=== PATIENT | female | born 1995 | race Hispanic/Latino ===

== ENCOUNTER 2018-03-22 17:44 | Inpatient (IN) | payer OTHER ==
[2018-03-22] MEDS ORDERED: Ringers Lactate 1,000 ML IV PRN ×2 (18:14→18:58)
[2018-03-22] MEDS ORDERED: PROMETHAZINE 25 MG/ML VIAL IM PRN (18:14)
[2018-03-22] MEDS ORDERED: MEPERIDINE HCL 25 MG/0.5 ML IV PRN (18:14)
[2018-03-22] MEDS ORDERED: CARBOPROST TROME 250 MCG/ML IM PRN ×2 (18:14→18:58)
[2018-03-22] MEDS ORDERED: METHYLERGONOVINE 0.2MG/ML AMP IM PRN ×2 (18:14→18:58)
[2018-03-22] MEDS ORDERED: BUTORPHANOL 1 MG/ML INJ IV PRN ×2 (18:14→18:58)
[2018-03-22 18:36] LABS: RPR Titer ND
[2018-03-22] MEDS ORDERED: PROMETHAZINE 25 MG/ML VIAL IV PRN ×2 (18:48→18:58)
[2018-03-22 18:50] VITALS: BMI 23.9
[2018-03-22 18:53] LABS: Absolute Lymphocytes (CBC) 1.5 K/uL (0.7-4.9); Absolute Monocytes 0.3 K/uL (0.1-1.3); Absolute Neutrophil 6.6 K/uL (1.8-8.0); Basophils % 0.1 % (0-1.3); Eosinophils % 0.4 % (0-4.4); Hematocrit 33.6 % (36.0-45.0); Lymphocytes % 17.3 % (15.3-44.8); MCH 29.1 pg (27.0-35.0); MCV 83.4 fL (80-100); MPV 9.7 fL (7.6-11.3); Monocytes % 3.9 % (3.3-12.3); RBC Red Blood Cell Count 4.03 M/uL (3.86-4.86)
[2018-03-22] MEDS ORDERED: Ringers Lactate 1,000 ML IV SCH ×2 (19:00)
[2018-03-22] MEDS ORDERED: OXYTOCIN/LR 20 UNIT/1,000 ML BAG IV SCH ×2 (19:00)
[2018-03-23] MEDS ORDERED: LIDOCAINE 2% INJ, 20 mL 0 ML ONE (00:12)
--- NOTE | 2018-03-23 00:43 | PREOPHP ---
Date of Admission: 03/22/2018 History Of Present Illness: Ms. Zavala is a 22-year-old female, 2, para 1-0- 0-1, at 38+ weeks gestation. She is followed by Dr. Richards during this without significant complications. She presents with spontaneous rupture of membranes and with irregular contractions. Past Medical History: Please see record. Family History: Please see record. Review of Systems: She reports no recent cough, cold, fever, or chills. No recent nausea or vomiting. She denies any b reast knots or lumps. She denies any bowel or bladder issues. has been active. She denies a ny significant vaginal bleeding. Physical Examination: General: Reveals a pleasant female, in no apparent distress. Neck: Supple without adenopathy or thyromegaly. Lungs: Clear. Cardiac: Regular rate and rhythm without murmurs. Breasts: Not examined. Abdomen: Estimated weight of 6-plus to 7-plus pounds. PELVIC: Now cervix noted to be approximately 4+ cm dilated, vertex between -1 and -2 station. Extremities: No cyanosis, clubbing, or edema. Impression: A [id number] , spontaneous rupture of membranes. Plan: The patient is currently being augmented with Pitocin. She is beta strep negative. Prefers o nly IV analgesia during her labor course. DARIN/JAMES Voice ID: [id number]
[2018-03-23] MEDS ORDERED: ONDANSETRON 4 MG (ODT) TAB PO PRN (01:26)
[2018-03-23] MEDS ORDERED: IBUPROFEN 200 MG TAB PO PRN (01:26)
[2018-03-23] MEDS ORDERED: CARBOPROST TROME 250 MCG/ML IM PRN (01:26)
[2018-03-23] MEDS ORDERED: METHYLERGONOVINE 0.2 MG TAB PO PRN (01:26)
[2018-03-23] MEDS ORDERED: METHYLERGONOVINE 0.2MG/ML AMP IM PRN (01:26)
[2018-03-23] MEDS ORDERED: ACETAMINOPHEN 500 MG TAB PO PRN (01:26)
--- NOTE | 2018-03-23 01:29 | P.BOP ---
Preoperative diagnosis: Term IUP Postoperative diagnosis: SCVD viable male Estimated blood loss: <300ml Complications: None Transferred to: Other ([id number])
[2018-03-23] MEDS ORDERED: MEASLES,MUMPS,RUBELLA VAC 0.5ML SQVAC ONE (01:33)
[2018-03-23 01:42] LABS: RPR (Rapid Plasma Reagin) NON-REACT (NON-REACT)
[2018-03-23] MEDS ORDERED: OXYTOCIN/LR 20 UNITS/1,000 ML BAG IV SCH (02:00)
--- NOTE | 2018-03-23 16:55 | OP ---
Surgeon: Palomo Aviles MD DELIVERY NOTE Ms Zavala is a 22-year-old female, 2, para 1-0-0-1, followed by Dr. Richards. S he presents with ruptured membranes in prodromal labor. After Pitocin augmentation of labor, she had a first stage of labor of 8 hours and second stage of labor 7 minutes. She delivered by spontaneous controlled vaginal delivery, a 7 pounds 6 ounce male infant, 9 and 9. After short delay, the c ord was clamped, cut, and the placed on mother's upper abdomen. Cord blood was obtained. Plac enta was spontaneously expelled and appeared to be intact. Intrauterine examination revealed no alicia ined placental fragments. She suffered no lacerations. Estimated total blood loss was less than 300 cc. She received 1 dose of Stadol 1 mg and Phenergan 12.5 mg IV x1 for analgesia during her labor c ourse. DARIN/JAMES Voice ID: [id number] Report ID: [id number]
[2018-03-24 09:04] VITALS: BP 108/59; TEMP 98.1
--- NOTE | 2018-03-25 06:39 | DS ---
Date of Discharge: 03/24/2018 Final Hospital Discharge Diagnosis: 38 plus week , delivered. Complications: None. Procedures: Pitocin augmentation of labor, spontaneous controlled vaginal delivery of viable male in shannan. Hospital Course: The patient is a 22-year-old, , female, 2, para 1-0-0-1, at 38+ weeks gestation, followed by Dr. Richards during this without complication. She was admi tted with spontaneous rupture of membranes in prodromal labor. She had an uneventful labor and deliv tati of a 7-pound 6-ounce male utilizing IV analgesia. She was dismissed on the first postpart um day, ambulatory, on a select diet with routine postvaginal delivery activity restrictions. To be seen back by Dr. Richards for a followup. She had admission hemoglobin and hematocrit of 11.7 and 33.6, dismissal 31.7. She was rubella nonimmune, was immunized prior to dismissal. She is Rh positive bl ood type. DARIN/JAMES Voice ID: [id number] Report ID: [id number]
[2018-03-26 03:34] LABS: HBsAG Nonreactive (Nonreactive)
== END 2018-03-24 12:45 | disposition home or self-care (01) | DRG 807 ==
LOC: L&D 17:44 → 2ND-WC 17:51
PROVIDERS: ADMIT Specialist; ATTEND Specialist
PROC: 10E0XZZ Delivery of Products of Conception, External Approach (ICD-10-PCS; principal; 2018-03-23)
DX: O80 Encounter for full-term uncomplicated delivery (principal); Z37.0 Single live birth; Z3A.38 38 weeks gestation of pregnancy; Z23 Encounter for immunization
CPT/HCPCS: 36415; 83986; 85014; 85025; 86592; 86901; 87340; 90707; J0595; J2210; J2550; J2590

== ENCOUNTER 2019-09-21 18:10 | Emergency (ER) | payer BC, OTHER ==
--- OUTSIDE RECORDS SUMMARY | 2019-09-21 18:11 | XMS REPORT ---
:1995 Author Organization [facility] t Address [address] [place] [address] Dr. Fitz[address] [place] [address] Care Team Providers Name Role Phone Unavailable Unavailable Unavailable Problems Condition Condition Condition Status Onset Resolution Last Treating Co mments Source Name Details Category Date Date Treatment Clinician Date Surveillan Surveillan Diagnosis Active [facility] for [facility] control, control, l intrauteri intrauteri Ou tpati ne device ne device ent Clinics Need for Need for Problem Active [facility] Tdap Tdap [facility] - vaccinatio vaccinatio Me moria n n l Outpati ent Clinics Encounter Encounter Problem Active [facility] for for [facility] - supervisio supervisio Me moria n of other n of other l normal normal Outpati ent in third in third Clinic s trimester trimester Other Other Problem Active [facility] specified specified Luke s - diseases diseases Memori a and and l conditions conditions Ou tpati complicati complicati en t [facility] Clinics , , childbirth childbirth and the and the puerperium puerperium Underimmun Underimmun Problem Active [facility] ization ization [facility] - status status [facility]oria l [facility] Encounter Encounter Problem Active [facility] for for [facility] - supervisio supervisio Me moria n of other n of other l normal normal Outpati ent in second in second Clin ics trimester trimester Encounter Encounter Problem Active [facility] for for [facility] - supervisio supervisio Me moria n of other n of other l normal normal Outpati ent in first in first Clinic s trimester trimester Allergies, Adverse Reactions, Alerts Allergy Allergy Status Severity Reaction(s) Onset Inactive Treating Comm ents Source Name Type Date Date Clinician seasonal Adverse Active Info Not [facility] Reaction Available [facility] Medications Ordered Filled Start Stop Current Ordering Indication Dosage Frequency Signature Comments Components Source Medication Medication Date Date Medication? Clinician (SIG) Name Name Denise Walker 2017- Yes Bill [address] [facility] 5-07 R[facility]hi at bedtime [facility] Clin[facility] Yes Bill [address] [facility] R[facility]hi [facility] Clinics Procedures This patient has no known procedures. Encounters Start End Encounter Admission Attending Care Care Encounter Source Date/Time Date/Time Type Type Clinicians Facility Department ID 2019-01-26 2019-01-26 Outpatient [facility] [id number] [facility] [address] 15[facility]00 15[facility]00:00 t [facility] 2018-10-06 2018-10-06 Outpatient [facility] [id number] [address] 15:[facility] 15[facility] Results This patient has no known results.
[2019-09-21] MEDS ORDERED: ONDANSETRON 4 MG/2 ML VIAL ONE (18:47)
[2019-09-21] MEDS ORDERED: NA CHLORIDE 0.9% 2,000 ML ONE (18:48)
[2019-09-21 19:17] LABS: Absolute Lymphocytes (CBC) 2.3 K/uL (0.7-4.9); Basophils % 0.8 % (0-1.3); Hematocrit 39.1 % (36.0-45.0); Lymphocytes % 32.3 % (15.3-44.8); RBC Red Blood Cell Count 4.79 M/uL (3.86-4.86)
[2019-09-21 19:22] LABS: BUN Blood Urea Nitrogen 13 mg/dL (7-18); Bicarbonate 25 mmol/L (21-32); Glucose Level 91 mg/dL (74-106); Potassium 3.5 mmol/L (3.5-5.1); Sodium Level 138 mmol/L (136-145)
[2019-09-21 21:12] LABS: Urine Blood TRACE (NEG); Urine Glucose NEGATIVE (NEG); Urine Protein NEGATIVE (NEG)
[2019-09-21 22:07] VITALS: O2SAT 100
[2019-09-21 22:12] VITALS: BP 121/83; TEMP 98.7
--- NOTE | 2019-09-22 07:08 | EKG ---
Test Date: 2019-09-21 Test Time: 18:48:54 Kaitara Taraka: KRISTY MEASUREMENT RESULTS: Intervals: Rate: 76 SD: 188 QRSD: 74 QT: 372 QTc: 418 [place]: P: 55 SD: 188 QRS: 76 T: 59 INTERPRETIVE STATEMENTS: Normal sinus rhythm with sinus arrhythmia Normal ECG No previous ECG available for comparison Electronically Signed On 09-22-19 07:07:57 CDT by Sin Stark
--- NOTE | 2019-09-28 12:41 | EDPHYS ---
Physician Documentation [facility] Name: Maya Zavala Age: 24 yrs Sex: Female : 1995 Arrival Date: 09/21/2019 Time: 18:12 Bed 6 Private MD: ED Physician Riki Shields HPI: 09/20 18:32 This 24 yrs old Female presents to ER via Ambulatory with complaints of rn accidental ingestion of Cutter backyard spray. 18:32 The patient presents to the emergency department with a known poisoning. Severity of rn symptoms: At their worst the symptoms were mild in the emergency department the symptoms have improved. The patient has not experienced similar symptoms in the past. Reports accidentally drank about 8 oz of Cutter backyard bug spray concentrate. Reports sore throat and tingling to throat, threw up once, and now feels ok. No trouble swallowing. Has been drinking water. No medical problems. No seizures. no chest pain/sob. Solution is 0.16% Lamda-Cyhalothrin. . Historical: - Allergies: 18:14 No Known Allergies; aa5 - Home Meds: 18:14 None [Active]; aa5 - PMHx: 18:14 None; aa5 - PSHx: 18:14 None; aa5 - Immunization history:: Adult Immunizations up to date. - Social history:: Smoking status: Patient denies any tobacco usage or history of. - Family history:: not pertinent. - Hospitalizations: : No recent hospitalization is reported. ROS: 18:32 Constitutional: Negative for fever, chills, and weight loss, Eyes: Negative for injury, rn pain, redness, and discharge, ENT: Tingling in throat but no pain Neck: Negative for injury, pain, and swelling, Cardiovascular: Negative for chest pain, palpitations, and edema, Respiratory: Negative for shortness of breath, cough, wheezing, and pleuritic chest pain, Abdomen/GI: Negative for abdominal pain, diarrhea, and constipation, MS/Extremity: Negative for injury and deformity, Skin: Negative for injury, rash, and discoloration, Neuro: Negative for headache, weakness, and seizure. Exam: 18:32 Constitutional: This is a well developed, well nourished patient who is awake, alert, rn and in no acute distress. Ambulatory to room without difficulty or assistance. Head/Face: Normocephalic, atraumatic. Eyes: Pupils equal round and reactive to light, extra-ocular motions intact. Lids and lashes normal. Conjunctiva and sclera are non-icteric and not injected. Cornea within normal limits. Periorbital areas with no swelling, redness, or edema. ENT: Mild pharyngeal erythema, no exudate/stridor/swelling Neck: Trachea midline, no thyromegaly or masses palpated, and no cervical lymphadenopathy. Supple, full range of motion without nuchal rigidity, or vertebral point tenderness. No Meningismus. Cardiovascular: Regular rate and rhythm. No pulse deficits. Respiratory: No increased work of breathing, no retractions or nasal flaring. Abdomen/GI: Soft, non-tender Skin: Warm, dry MS/ Extremity: Pulses equal, no cyanosis. Neurovascular intact. Full, normal range of motion. Equal circumference. Neuro: Awake and alert, GCS 15, oriented to person, place, time, and situation. Cranial nerves II-XII grossly intact. Motor strength 5/5 in all extremities. Sensory grossly intact. Cerebellar exam normal. Normal gait. Vital Signs: 18:13 BP 139 / 102; Pulse 90; Resp 18 S; Temp 99.0(TE); Pulse Ox 100% on R/A; aa5 19:07 BP 110 / 76; Pulse 72; Resp 18; Pulse Ox 100% on R/A; ea 20:34 BP 122 / 82; Pulse 81; Resp 18; Pulse Ox 100% on R/A; ea 22:00 BP 121 / 83; Pulse 77; Resp 17; Temp 98.7; Pulse Ox 100% ; rv MDM: 18:14 Patient medically screened. rn 19:14 Data reviewed: vital signs, nurses notes. Data interpreted: Pulse oximetry: on room air kb is 100 %. Interpretation: normal. ED course: Will monitor pt for 4 hours based on Poison Control's recommendation. No distress noted. Pt drinking water without difficulty. 20:53 Counseling: I had a detailed discussion with the patient and/or guardian regarding: the kb historical points, exam findings, and any diagnostic results supporting the discharge/admit diagnosis, lab results, the need for outpatient follow up, a family practitioner, to return to the emergency department if symptoms worsen or persist or if there are any questions or concerns that arise at home. 05/25 18:31 Order name: CBC with Diff; Complete Time: 19:20 rn 09/20 18:31 Order name: Basic Metabolic Panel; Complete Time: 19:24 rn 09/20 20:34 Order name: Urine Dipstick--Ancillary (enter results); Complete Time: 21:18 banner 09/20 20:34 Order name: Urine --Ancillary (enter results); Complete Time: 21:18 banner 09/20 18:31 Order name: IV Start; Complete Time: 18:49 rn 09/20 18:31 Order name: Urine Test (obtain specimen); Complete Time: 20:33 rn 09/20 18:31 Order name: Urine Dipstick-Ancillary (obtain specimen); Complete Time: 20:33 rn 09/20 18:31 Order name: EKG - Nurse/Tech; Complete Time: 18:49 rn 09/20 18:31 Order name: EKG; Complete Time: 18:32 rn Administered Medications: 18:58 Drug: Zofran (Ondansetron) 4 mg Route: IVP; Site: right antecubital; ls4 19:19 Follow up: Response: No adverse reaction ea 18:58 Drug: NS 0.9% 1000 ml Route: IV; Rate: 1000 ml; Site: right antecubital; ls4 22:00 Follow up: IV Status: Completed infusion; IV Intake: 1000ml rv 18:59 Drug: NS 0.9% 1000 ml Route: IV; Rate: 1000 ml; Site: right antecubital; ls4 22:00 Follow up: IV Status: Completed infusion; IV Intake: 1000ml rv Disposition: 09/21 07:10 Co-signature as Attending Physician, Riki Shields MD. rn Disposition: 09/21/19 21:34 Discharged to Home. Impression: Accidental ingestion of cutter insect spray. - Condition is Stable. - Discharge Instructions: Nontoxic Ingestion, What You Need to Know About Poisoning, Adult. - Medication Reconciliation Form, Thank You Letter, Antibiotic Education, Prescription Opioid Use form. - Follow up: Private Physician; When: 2 - 3 days; Reason: Recheck today's complaints, Continuance of care, Re-evaluation by your physician. Follow up: Emergency Department; When: As needed; Reason: Worsening of condition. Signatures: Dispatcher [employer] Jose Alberto Norwoodistin, BROADCAST PRODUCER-C BROADCAST PRODUCER-Ckb Riki Shields MD MD rn Calderon, Mariah, RN RN aa5 Saeid Huynh, RN RN Marlen Phillips, RN RN ls4 Jocelin Diaz RN ea Corrections: (The following items were deleted from the chart) 09/20 18:34 18:32 Constitutional: Negative for fever, chills, and weight loss, Eyes: Negative for rn injury, pain, redness, and discharge, Neck: Negative for injury, pain, and swelling, Cardiovascular: Negative for chest pain, palpitations, and edema, Respiratory: Negative for shortness of breath, cough, wheezing, and pleuritic chest pain, Abdomen/GI: Negative for abdominal pain, diarrhea, and constipation, MS/Extremity: Negative for injury and deformity, Skin: Negative for injury, rash, and discoloration, Neuro: Negative for headache, weakness, and seizure, rn 22:01 21:34 09/21/2019 21:34 Discharged to Home. Impression: Accidental ingestion of cutter rv insect spray. Condition is Stable. Forms are Medication Reconciliation Form, Thank You Letter, Antibiotic Education, Prescription Opioid Use. Follow up: Private Physician; When: 2 - 3 days; Reason: Recheck today's complaints, Continuance of care, Re-evaluation by your physician. Follow up: Emergency Department; When: As needed; Reason: Worsening of condition. kb
--- NOTE | 2019-09-28 12:41 | ER ---
Nurse's Notes [facility] Name: Maya Zavala Age: 24 yrs Sex: Female : 1995 Arrival Date: 09/21/2019 Time: 18:12 Bed 6 Private MD: Diagnosis: Accidental ingestion of cutter insect spray Presentation: 09/20 18:13 Chief complaint: Patient states: Drank 8 oz of cutter backyard bug control spray aa5 concentrate (jamar-cyhalothrin 0.16%) approximately at 1730. Pt states "I went to my cousin's house to eat crawfish and he disposed of the cutter insect repellant in a water bottle so I didn't know and I drank it right after eating dinner". Pt states "I vomited right away and my called poison control". Pt c/o sore throat and burning sensation to esophagus. 18:13 Coronavirus screen: Proceed with normal triage. Patient denies a cough. Patient denies aa5 shortness of breath or difficulty breathing. Patient denies measured and/or subjective temperature greater than 100.4F prior to today's visit. Patient denies travel on a cruise ship or to a country the [facility] currently lists as an affected area. Patient denies contact with known and/or suspected case of COVID-19. Ebola Screen: Patient negative for fever greater than or equal to 101.5 degrees Fahrenheit, and additional compatible Ebola Virus Disease symptoms. Initial Sepsis Screen: Does the patient meet any 2 criteria? No. Patient's initial sepsis screen is negative. Does the patient have a suspected source of infection? No. Patient's initial sepsis screen is negative. Risk Assessment: Do you want to hurt yourself or someone else? Patient reports no desire to harm self or others. Onset of symptoms was August 2019. 18:13 Acuity: SEBASTIEN 3 aa5 18:13 Method Of Arrival: Ambulatory aa5 Triage Assessment: 18:29 General: Appears in no apparent distress. comfortable, Behavior is calm, cooperative. ls4 Neuro: No deficits noted. Cardiovascular: No deficits noted. Respiratory: Airway is patent Respiratory effort is even, unlabored, Respiratory pattern is regular. GI: No deficits noted. No signs and/or symptoms were reported involving the gastrointestinal system. : No deficits noted. No signs and/or symptoms were reported regarding the genitourinary system. Derm: No deficits noted. No signs and/or symptoms reported regarding the dermatologic system. Musculoskeletal: No deficits noted. No signs and/or symptoms reported regarding the musculoskeletal system. Historical: - Allergies: 18:14 No Known Allergies; aa5 - Home Meds: 18:14 None [Active]; aa5 - PMHx: 18:14 None; aa5 - PSHx: 18:14 None; aa5 - Immunization history:: Adult Immunizations up to date. - Social history:: Smoking status: Patient denies any tobacco usage or history of. - Family history:: not pertinent. - Hospitalizations: : No recent hospitalization is reported. Screenin:28 Abuse screen: Denies threats or abuse. Denies injuries from another. Nutritional ls4 screening: No deficits noted. Tuberculosis screening: No symptoms or risk factors identified. Fall Risk None identified. Assessment: 18:32 Reassessment: Spoke to poison control ([facility] at [facility]) and states aa5 seizures, coma, decreased mental status, abdominal cramping, paresthesias to throat, dizziness, and hyperexcitability may occur and most likely within the first 20 to 60 minutes of ingestion. Bowel irrigation is not indicated due to being rapidly absorbed by the body. Treatment is supportive care and observation time is recommended for 4-6 hours. Case # [id number]. 19:22 General: Appears in no apparent distress. Behavior is calm, cooperative, appropriate ea for age. Pain: Denies pain. Neuro: Level of Consciousness is awake, alert, obeys commands, Oriented to person, place, time, situation. Respiratory: Airway is patent Respiratory effort is even, unlabored, Respiratory pattern is regular, symmetrical. Derm: Skin is pink, warm \\T\\ dry. 20:33 Reassessment: Patient and/or family updated on plan of care and expected duration. Pain ea level reassessed. Patient is alert, oriented x 3, equal unlabored respirations, skin warm/dry/pink. 22:01 Reassessment: Patient and/or family updated on plan of care and expected duration. Pain rv level reassessed. Patient is alert, oriented x 3, equal unlabored respirations, skin warm/dry/pink. Patient states feeling better. Vital Signs: 18:13 BP 139 / 102; Pulse 90; Resp 18 S; Temp 99.0(TE); Pulse Ox 100% on R/A; aa5 19:07 BP 110 / 76; Pulse 72; Resp 18; Pulse Ox 100% on R/A; ea 20:34 BP 122 / 82; Pulse 81; Resp 18; Pulse Ox 100% on R/A; ea 22:00 BP 121 / 83; Pulse 77; Resp 17; Temp 98.7; Pulse Ox 100% ; rv ED Course: 18:12 Patient arrived in ED. ag5 18:12 Arm band placed on. aa5 18:14 Riki Shields MD is Attending Physician. rn 18:26 Triage completed. aa5 18:27 Marlen Buck, RN is Primary Nurse. ls4 18:28 No apparent distress. ls4 18:28 Patient has correct armband on for positive identification. Bed in low position. Call ls4 light in reach. Side rails up X 1. Pulse ox on. NIBP on. Verbal reassurance given. Diet: Patient is NPO. 18:28 No provider procedures requiring assistance completed. ls4 18:41 Est[facility] Lopez [facility]-C [facility]. kb 19:21 Report given to Lacy NORTH. ls4 19:25 Jocelin Diaz, RN is Primary Nurse. ea 22:01 IV discontinued, intact, bleeding controlled, No redness/swelling at site. Pressure rv dressing applied. Administered Medications: 18:58 Drug: Zofran (Ondansetron) 4 mg Route: IVP; Site: right antecubital; ls4 19:19 Follow up: Response: No adverse reaction ea 18:58 Drug: NS 0.9% 1000 ml Route: IV; Rate: 1000 ml; Site: right antecubital; ls4 22:00 Follow up: IV Status: Completed infusion; IV Intake: 1000ml rv 18:59 Drug: NS 0.9% 1000 ml Route: IV; Rate: 1000 ml; Site: right antecubital; ls4 22:00 Follow up: IV Status: Completed infusion; IV Intake: 1000ml rv Intake: 22:00 IV: 1000ml; Total: 1000ml. rv 22:00 IV: 1000ml; Total: 2000ml. rv Outcome: 21:34 Discharge ordered by . kb 22:00 Discharged to home ambulatory. rv 22:00 Condition: good 22:00 Discharge instructions given to patient, Instructed on discharge instructions, follow up and referral plans. Demonstrated understanding of instructions, follow-up care. 22:01 Patient left the ED. rv Signatures: Estelle Lopez FNP-C FNP-Riki Cameron MD MD rn Calderon, Audri RN RN aa5 Jocelin Diaz, RN Saeid Matias ea RN Marlen Rangel RN RN 4 Adelita Bautista 5 Corrections: (The following items were deleted from the chart) 18:27 18:13 Chief complaint: Patient states: Drank 8 oz of cutter insect repellant. Pt states aa5 "I went to my cousin's house to eat crawfish and he disposed of the cutter insect repellant in a water bottle so I didn't know and I drank it right after eating dinner". Pt states "I vomited right away and my called poison control". Pt c/o sore throat and burning sensation to esophagus. aa5 18:31 18:13 Chief complaint: Patient states: Drank 8 oz of cutter insect repellant aa5 approximately at 1730. Pt states "I went to my cousin's house to eat crawfish and he disposed of the cutter insect repellant in a water bottle so I didn't know and I drank it right after eating dinner". Pt states "I vomited right away and my called poison control". Pt c/o sore throat and burning sensation to esophagus. aa5
== END 2019-09-21 22:01 | disposition home or self-care (01) ==
LOC: ER 18:10
DX: T65.891A Toxic effect of other specified substances, accidental (unintentional), initial encounter (principal); Y92.89 Other specified places as the place of occurrence of the external cause
CPT/HCPCS: 96361; 93005; 85025; 80048; 36415; 81025; 81003; 96374; 99283; J7030; J2405